=== PATIENT | male | born 2000 | race Caucasian/White ===

== ENCOUNTER 2022-01-06 02:51 | Emergency (ER) | payer MEDICAID | END 2022-01-06 03:49 | disposition home or self-care (01) | LOC: LB.ED 02:51 | DX: R10.31 Right lower quadrant pain (principal); Z88.0 Allergy status to penicillin | CPT/HCPCS: 99281; 99284 ==

== ENCOUNTER 2022-01-17 18:17 | Emergency (ER) | payer MEDICAID ==
[2022-01-17] MEDS ORDERED: Cephalexin 500 MG Cap ONE (18:45)
== END 2022-01-17 18:54 | disposition home or self-care (01) ==
LOC: LB.ED 18:17
DX: H66.93 Otitis media, unspecified, bilateral (principal)
CPT/HCPCS: 99282; A9270

== ENCOUNTER 2023-07-12 18:33 | Emergency (ER) | payer MEDICAID ==
[2023-07-12 19:39] LABS: BASOPHILS ABSOLUTE AUTO 0.03 K/uL (0.02-0.10); BASOPHILS PERCENT AUTO 0.3 % (0.0-0.5); EOSINOPHILS ABSOLUTE AUTO 0.27 K/uL (0.04-0.40); EOSINOPHILS PERCENT AUTO 2.9 % (1.0-5.0); HEMATOCRIT 43.6 % (40.0-54.0); HEMOGLOBIN 14.8 g/dL (13.0-18.0); LYMPHOCYTES ABSOLUTE AUTO 1.85 K/uL (1.50-4.00); MEAN CORPUSCULAR HGB CONC 33.9 g/dL (31.0-35.0); MEAN CORPUSCULAR VOLUME 88 fL (76-96); MEAN PLATELET VOLUME 9.2 fL (6.0-10.0); MONOCYTES ABSOLUTE AUTO 0.61 K/uL (0.20-0.80); MONOCYTES PERCENT AUTO 6.6 % (3.0-10.0); NEUTROPHILS ABSOLUTE AUTO 6.47 K/uL (2.00-7.50); NEUTROPHILS PERCENT AUTO 70.2 % (45.0-70.0); PLATELET COUNT,PLT 281 K/uL (150-400); RED BLOOD CELL COUNT 4.94 M/uL (4.50-6.50); RED CELL DISTRIBUTION WIDTH 12.3 % (11.0-16.0); WHITE BLOOD CELL COUNT,WBC 9.2 K/uL (4.0-11.0)
[2023-07-12 19:46] LABS: AMPHETAMINES SCREEN, URINE NEGATIVE (NEGATIVE); BARBITURATE SCREEN,URINE NEGATIVE (NEGATIVE); BENZODIAZEPINES SCREEN,URINE NEGATIVE (NEGATIVE); METHADONE SCREEN, URINE NEGATIVE (NEGATIVE); METHAMPHETAMINES SCREEN, URINE NEGATIVE (NEGATIVE); OXYCODONE SCREEN,URINE NEGATIVE (NEGATIVE); THC SCREEN,URINE 50 NG/ML NEGATIVE (NEGATIVE)
[2023-07-12 19:54] LABS: A/G RATIO 1.2 (0.8-2.0); ALANINE AMINOTRANSFERASE,ALT 94 U/L (12-78); ALBUMIN 4.5 g/dL (3.4-5.0); ALKALINE PHOSPHATASE 80 U/L (46-116); ANION GAP 11.8 mmol/L (5.0-15.0); ASPARTATE AMNIOTRANSFERASE,AST 35 U/L (15-37); BILIRUBIN TOTAL 0.4 mg/dL (0.0-1.0); BLOOD UREA NITROGEN,BUN 15 mg/dL (8-26); BUN/CREATININE RATIO 15.5 (6-25); CALCIUM 9.3 mg/dL (8.5-10.1); CARBON DIOXIDE,CO2 29.2 mmol/L (21.0-32.0); CHLORIDE,CL 102 mmol/L (98-107); CREATININE 0.97 mg/dL (0.70-1.30); ESTIMATED GFR 114 mL/min (>60); GLUCOSE RANDOM 109 mg/dL (74-100); PROTEIN TOTAL,TP 8.2 g/dL (6.4-8.2); SODIUM,NA 139 mmol/L (136-145)
[2023-07-12 20:04] LABS: ETHANOL BLOOD MEDICAL < 3.0 mg/dL (<3.0)
== END 2023-07-12 20:00 | disposition home or self-care (01) ==
LOC: LB.ED 18:33
DX: Z73.4 Inadequate social skills, not elsewhere classified (principal); Z91.148 Patient's other noncompliance with medication regimen for other reason
CPT/HCPCS: 36415; 80053; 80307; 85025; 99284